=== PATIENT | male | born 1955 | race Caucasian/White ===

== ENCOUNTER 2022-08-15 08:42 | Outpatient (OUT) | payer MEDICARE, SELFPAY ==
--- NOTE | 2022-08-15 09:01 | ECG_ITS ---
[facility] Test Date: 2022-08-15 Pat Name: Jose Gaudalupe Orr Department: Room: - Gender: Male [employer]: : 1955 Requested By: EMILIA SHERIDAN Order Number: [id number] Reading MD: NAVA BILL Measurements Intervals [place] Rate: 61 P: 28 AR: 177 QRS: -8 QRSD: 80 T: 52 QT: 400 QTc: 404 Interpretive Statements SINUS RHYTHM No previous ECG available for comparison Electronically Signed On 08-16-2022 7:07:48 EDT by NAVA BILL
[2022-08-15 09:47] LABS: Basophils Absolute Auto 0.1 10^3/uL (0.0-0.1); Basophils Percent Auto 0.8 % (0.2-2.0); Eosinophils Absolute Auto 0.3 10^3/uL (0.0-0.7); Eosinophils Percent Auto 5.1 % (0.9-7.0); Hematocrit 40.1 % (42.0-54.0); Hemoglobin 13.4 g/dL (14.0-18.0); Immature Granulocytes Abs Auto 0.02 10^3/uL (0.00-0.03); Immature Granulocytes Pct Auto 0.3 % (0.0-0.5); Lymphocytes Absolute Auto 1.5 10^3/uL (1.2-3.8); Lymphocytes Percent Auto 25.3 % (20.5-60.0); Mean Corpuscular HGB Conc 33.4 g/dL (29.9-35.2); Mean Corpuscular Volume 86.8 fL (80.0-94.0); Mean Platelet Volume 10.1 fL (9.5-13.5); Monocytes Absolute Auto 0.5 10^3/uL (0.3-0.8); Monocytes Percent Auto 8.3 % (1.7-12.0); Neutrophils Absolute Auto 3.6 10^3/uL (1.4-6.5); Neutrophils Percent Auto 60.2 % (43.0-75.0); Platelet Count 298 10^3/uL (150-450); Red Blood Count 4.62 10^6/uL (4.70-6.10); Red Cell Distribution Width 12.9 % (11.0-15.0); White Blood Count 5.9 10^3/uL (4.0-11.0)
--- NOTE | 2022-08-15 09:48 | XR_ITS ---
The [address] [address] Patient Name: SUMMER GRAHAM MRN: [id number] date: 1955 Sex: M Assigned Patient Location: [facility] Current Patient Location: [facility] Accession/Order Number: [id number] Exam Date: 08/15/2022 09:43 Report Date: 08/15/2022 10:01 At the request of: SIMIN NIXON Procedure: XR chest 2V PROCEDURE: XR chest 2V DATE: 08/15/2022 8:43 AM CDT COMPARISONS: None. CLINICAL INDICATION: 66 years Male pre op exam FINDINGS: Heart size is normal. Pulmonary vasculature is not congested. There is 2.9 cm high density nodularity right hilum likely representing calcified right hilar node. The lungs are otherwise clear. There is no evidence of pleural effusion or pneumothorax. There is mild elevation the right hemidiaphragm. IMPRESSION: The only abnormality identified on this exam is nodular prominence of the right hilum. While the relatively high density of this nodular prominence suggests it could represent a calcified right hilar node, I cannot be sure that it is calcified. This 66-year-old male reportedly has a history of smoking. I feel it is appropriate to do CT of the chest with contrast enhancement to further evaluate this right hilum. Electronically authenticated by: ALFREDO CHI Date: 08/15/2022 10:01
[2022-08-15 10:05] LABS: INR 0.95; Partial Thromboplastin Time 26.5 sec (22.3-36.2); Prothrombin Time 10.1 sec (9.0-11.6)
[2022-08-15 13:14] LABS: Anion Gap 12.7; Calcium 8.9 mg/dL (8.5-10.1); Carbon Dioxide 30.1 mmol/L (21.0-32.0); Chloride 102 mmol/L (98-107); Estimated GFR (African America >60 (>=60); Estimated GFR (Non-African Ame >60 (>=60); Glucose 145 mg/dL (74-106); Potassium 4.8 mmol/L (3.5-5.1); Sodium 140 mmol/L (136-145)
== END 2022-08-15 08:43 | disposition home or self-care (01) ==
LOC: PST 08:46
PROVIDERS: PCP Family Medicine; Visit Provider Urology
DX: Z01.812 Encounter for preprocedural laboratory examination (principal); Z01.810 Encounter for preprocedural cardiovascular examination; Z01.811 Encounter for preprocedural respiratory examination; N20.1 Calculus of ureter; E11.9 Type 2 diabetes mellitus without complications
CPT/HCPCS: 36415; 71046; 80048; 85025; 85610; 85730; 93005

== ENCOUNTER 2022-08-28 11:17 | Day surgery (SDC) | payer MEDICARE, SELFPAY ==
[2022-08-15 09:16] VITALS: PULSE 65; TEMP 36.6; O2SAT 97; BMI 27.0
[2022-08-28] VITALS (12 sets, daily range): BP systolic 167–200; BP diastolic 69–143; PULSE 54–67; RESP 6–16; TEMP 36.1–36.5; O2SAT 97–100; BMI 29.8
[2022-08-28 11:34] LABS: Glucometer 141 mg/dL (74-106)
[2022-08-28] MEDS: LACTATED RINGER'S SOLUTION 1,000 ML 50 ML IV (11:43)
[2022-08-28] MEDS: CEFAZOLIN SODIUM/DEXTROSE,ISO 2 GM/50 ML PIGGYBACK IV (12:51)
--- NOTE | 2022-08-28 12:51 | P.URON_ITS ---
Urology Surgery Operative Note Operative Note Procedure Date: 08/28/22 Time Out Performed: yes Pre-op Diagnosis: 1. Right renal stone 2. Renal colic 3. Right pelviectasis Post-op Diagnosis: 1. Right renal stone 2. Renal colic Procedures performed: Cystoscopy, right retrograde pyelogram, right ureteroscopy with laser lithotripsy/stone extraction, stent placement Anesthesia: GETA (LMA, Jenae Sharp RN CASE MANAGER) Primary Surgeon: Gianna Jenkins Complications: none Estimated blood loss (mL): 0 Findings: Mild-mod bilobar prostatic hypertrophy with elevated bladder neck. 1+ trabeculations. R RPG -No filling defects, hydronephrosis or extravasation Hard, yellow smooth 6x6mm stone in RLP underwent uncomplicated laser lithotripsy/stent placement. No renal pelvis tumors or lesions. Specimens: right kidney stone Drains: 4.8Fr x 22-30 cm JJ right ureteral stent on string Indications for Procedures: 66 year old male with a history of recurrent nephrolithiasis and right renal colic was found to have a 6 mm right lower pole renal stone and mild pelviectasis with urothelial wall thickening suggesting mild inflammation (no filling defects). Urine cytology negative. After discussion of risks/benefits of management options, he elected to proceed with cystoscopy, right retrograde pyelogram, ureteroscopy with laser lithotripsy/stone extraction, possible b iopsy, ureteral stent placement under general anesthesia. He understands this may not resolve his pain. Risks were discussed including but not limited to bleeding, pain, infection, damage to surrounding structures, inability to treat the stone/place a stent, and need for additional procedures. The patient understands the stent is not permanent and needs to be removed or exchanged within 3 months to prevent encrustation, infection, invasive procedures and/or permanent renal damage. Detailed description of Procedure: After informed consent was obtained, the patient was brought to the operating room and transferred onto the operating table in supine position. Sequential compression devices were placed on bilateral lower extremities. The patient received the appropriate dose of preoperative IV antibiotics and general anesthesia LMA was induced. They were positioned in modified dorsolithotomy with the appropriate pressure points padded, prepped, and draped in the usual sterile fashion for this procedure. An operative safety timeout was performed confirming the patient's identity, laterality and procedure, and all present agreed to proceed. I began by inserting a 22 Montenegrin rigid cystoscope with 30 degree lens into the patient's urethra and bladder without difficulty. There were no bladder tumors, lesions or foreign bodies. Bilateral ureteral orifices were orthotopic and patent. I turned my attention to the right ureteral orifice and a 6- Montenegrin open-ended catheter was inserted into the ureteral orifice and dilute contrast was injected for retrograde pyelogram with findings above. A sensor wire was inserted into the ureter up to the renal pelvis confirmed on fluoroscopy. Next, a 11/13 Montenegrin by 36 cm ureteral access sheath was inserted over the wire in a sequential fashion to gain access to the renal pelvis. A flexible ureteroscope was inserted into the sheath and a renoscopy was performed with findings above. A 2.2 tipless basket was used to relocate the lower pole stone, which required twisting and manipulation to obtain. This was unable to be basket extracted through the proximal ureter. A 275 ?m holmium laser fiber was used to break the stone into fragments which were then removed with a 2.2 tipless basket. After the stone was adequately treated, a full renoscopy was performed confirming no significant residual stones or fragments remained. Contrast was injected to assist with mapping for the renoscopy. The wire was reinserted and a pull down ureteroscopy was performing confirming no stones remained in the ureter. The wire was backloaded through the cystoscope and 4.8Fr x 22-30cm JJ variable length ureteral stent on a string was advanced over the wire, noting adequate curl in the renal pelvis and bladder on fluoroscopic and direct visualization. The bladder was drained and inspected one final time to ensure adequate position of stent and no undue trauma to the bladder was done. The stones sent for pathology and the cystoscope was removed. The string was secured to the ventral phallus with Tegaderm dressing. The patient tolerated the procedure well without complication. The patient was awakened from anesthesia and sent to PACU in stable condition. Plan: Remove stent by string at home in 4-5 days. Follow up in 6 wks with renal US, review stone analysis and discuss metabolic stone workup. Other Provider present: No Post Operative care instructions: Written/verbally provided Attending Doc Confirm Attending Attestation: Yes
[2022-08-28] MEDS: IOHEXOL 240 MG/ML - 50 ML VIAL INJ (13:33)
--- NOTE | 2022-08-28 13:58 | PC.NURSE ---
1354 PATOENT'S BLOOD PRESSURE WAS VERY ELEVATED, BUT PATIENT WAS TRYING TO USE THE URINAL AND HAD HIS ARM BENT HOLDING URINAL.
--- NOTE | 2022-08-28 14:14 | PC.NURSE ---
DR. IYER WAS UPDATED ON PATIENT'S BLOOD PRESSURES. BLOOD PRESSURE CLOSE TO ADMISSION VITALS. pATIENT DRANK FLUIDS WHILE IN PHASE 1 AND TOLERATED WELL.
[2022-09-03 16:10] LABS: Calcium Oxalate Monohydrate 20 % (.); Size 3x6 mm (.); Uric Acid 80 % (.)
== END 2022-08-28 14:39 | disposition home or self-care (01) ==
PROVIDERS: PCP Family Medicine; Visit Provider Urology
PROC: (CPT 52356; principal; 2022-08-28 12:30)
DX: N20.0 Calculus of kidney (principal); N40.0 Benign prostatic hyperplasia without lower urinary tract symptoms; Z87.442 Personal history of urinary calculi; Z87.891 Personal history of nicotine dependence; E11.9 Type 2 diabetes mellitus without complications; Z79.84 Long term (current) use of oral hypoglycemic drugs; R31.21 Asymptomatic microscopic hematuria
CPT/HCPCS: 52356; 36415; 74420; 82365; 99999; C1874; J2704; Q9966

== ENCOUNTER 2022-10-04 08:48 | Outpatient (OUT) | payer MEDICARE, SELFPAY ==
--- NOTE | 2022-10-04 08:53 | US_ITS ---
The [address] [address] Patient Name: SUMMER GRAHAM MRN: [id number] date: 1955 Sex: M Assigned Patient Location: [place] Current Patient Location: Accession/Order Number: [id number] Exam Date: 10/04/2022 08:54 Report Date: 10/04/2022 14:07 At the request of: SIMIN NIXON Procedure: US renal BI EXAM: US renal BI HISTORY: Kidney Stone N20.0, Right Flank Pain R10.9 COMPARISON: None. TECHNIQUE: Real-time ultrasound imaging of the kidneys and bladder. Findings: The right and left kidneys measure 12.2 and 14.0 cm. Good corticomedullary differentiation bilaterally. No renal stones or collecting system dilatation. No focal mass or perinephric fluid collection. The gallbladder is partially fluid filled limiting its evaluation. No calculi. Prevoid volume of 39 mL. US/US renal BI IMPRESSION: 1. Unremarkable sonographic appearance of the kidneys. Electronically authenticated by: MODE TAYLOR Date: 10/04/2022 14:07
== END 2022-10-04 08:49 | disposition home or self-care (01) ==
LOC: US 08:48
PROVIDERS: PCP Family Medicine; Visit Provider Urology
DX: N20.0 Calculus of kidney (principal); R10.9 Unspecified abdominal pain
CPT/HCPCS: 76775